=== PATIENT | male | born 1980 | race Asian ===

== ENCOUNTER 2021-09-18 11:09 | Inpatient (IN) ==
[2021-09-18] MEDS ORDERED: SODIUM CHLORIDE 0.9% 1000ML 1,000 ML IV ONE (11:26)
[2021-09-18] MEDS ORDERED: dexAMETHasone**PF** 10 MG/ML VIAL IV ONE (11:26)
[2021-09-18] MEDS ORDERED: ACETAMINOPHEN 325 MG TAB PO STA (11:26)
--- NOTE | 2021-09-18 11:30 | Emergency Department Note ---
Impression & Plan Pneumonia due to COVID-19 virus, Acute respiratory failure with hypoxemia ED Provider Note NAME: DIVYA CASTILLO AGE: 41 SEX: M : 1980 ARRIVES VIA: Walk-In INFORMANT: Patient ED PROVIDER(S): Olegario Beauchamp DO CHIEF COMPLAINT: covid, hypoxic HPI: Patient is a 41-year-old male who presents the ER for upper respiratory symptoms. This started this past Saturday. His cough congestion. Shortness of breath has been getting worse. Admits to fevers. Intermittent chest pain. Denies any belly pain, nausea, vomiting, or diarrhea. No dysuria, urgency, or frequency. No other exacerbating or remitting factors. ROS: See above HPI for pertinent positives & negatives. A total of 10 systems reviewed and were otherwise negative. PAST MEDICAL HISTORY:See Below PAST SURGICAL HISTORY:See Below FAMILY HISTORY:See Below SOCIAL HISTORY:See Below HOME MEDICATIONS:See Below ALLERGIES:See Below VITALS:See Below PHYSICAL EXAMINATION: GENERAL: Sitting up in bed, alert, well appearing, well nourished, no distress, non-toxic EYE EXAM: normal conjunctiva. OROPHARYNX: no exudate, no erythema, lips, buccal mucosa, and tongue normal and mucous membranes are moist NECK: supple, no nuchal rigidity, no adenopathy, non-tender LUNGS: Diminished bilaterally. Normal chest wall mechanics HEART: no murmurs, S1 normal and S2 normal ABDOMEN: abdomen soft, non-tender, normo-active bowel sounds, no masses, no rebound or guarding. UPPER EXTREMITIES: upper extremities are grossly normal. LOWER EXTREMITIES: No pitting edema. NEURO EXAM: Normal sensorium, cranial nerves II-XII grossly intact, normal speech, no gross weakness of arms, no gross weakness of legs. MEDICAL DECISION MAKING: Patient is a 41-year-old male unvaccinated who presents ER for upper respiratory symptoms previously positive for Covid. He is found to be hypoxic at 77%. He was placed on a nonrebreather and then transition to high flow nasal cannula. IV was established blood work is obtained. Labs show no significant leukocytosis or anemia. VBG with a pH of 7.47. CO2 at 36. BMP with a potassium of 3.3. LFTs were up. T bili slightly up at 1.5. Troponin was de tectable at 0.105. Lipase was negative. Chest x-ray with bilateral infiltrates. Patient was given IV fluids and Decadron. He was updated bedside discussed with hospitalist admitted for further work-up. Remained on high flow throughout the stay in the ER. Triage Nursing notes reviewed. Limited review of prior medical records performed Vital Signs: reviewed and remarkable for tachycardic, hypoxic and febrile Differential diagnosis: Differential diagnoses includes but is not limited to pneumonia, bronchitis, COPD/Asthma exacerbation, pneumothorax, pulmonary embolism, congestive heart failure, acute coronary syndrome ER treatment provided: See below Diagnostics interpreted by me: ECG:sinus rhythm rate 92 Normal axis No PVCs QTC 469 Cardiac Monitoring: An order was placed for continuous cardiac monitoring. The monitor shows a rate of 115 with sinus rhythm. Laboratory studies: As stated above and show below. Imaging studies: Chest x-ray with extensive bilateral infiltrates Ultrasound was unremarkable Consultation(s): Discussed with hospitalist for further evaluation Procedures: none Critical Care: I have personally spent 40 minutes of critical care time in the direct management of this patient. This includes bedside care, interpretation of diagnostic studies, and testing, discussion with consultants, patient, and family members, and other required patient management activities. This 40 m inutes is in excess of all separately billable procedures. Past Med/Surg History Social History Smoking Status: Never smoker Preferred Language: Kinyarwanda Feels Safe at Home: Yes Allergies Allergies Allergy/AdvReac Type Severity Reaction Status Date / Time No Known Allergies Allergy Unverified 09/12/21 11:37 Home Meds Previous Rx's Medication Instructions Recorded potassium chloride 20 mEq 20 meq PO DAILY #3 tab 09/12/21 tablet,extended release Results & Data (ED) Vital Signs Vital Signs - 24 hr 09/18/21 11:10 09/18/21 11:34 09/18/21 11:36 Temperature 38.3 C H Temperature Source Oral Pulse Rate 128 H Pulse Rate [Left] 92 H Pulse Rate from SpO2 Sensor Pulse Rhythm [Left] Regular Pulse Strength [Left] Normal Respiratory Rate 20 30 H 33 H Respiratory Effort / Characteristics Non-Labored Spontaneous Labored Respiratory Depth Normal Respiratory Pattern Regular Tachypnea Blood Pressure 103/67 Blood Pressure [Left Arm] 111/75 Blood Pressure Mean 79 Blood Pressure Mean [Left Arm] 87 Blood Pressure Position Sitting Blood Pressure Position [Left Arm] Sitting Pulse Oximetry 98 95 Oxygen Delivery Method Room Air Non-rebreather Oxygen Flow Rate 15 Fraction of Inspired Oxygen Sepsis Recent Fever Within 48 Hours Yes Sepsis New/Unexplained Change in Mental Status No Sepsis Action Taken by Nursing No Action Required 09/18/21 11:45 09/18/21 12:00 09/18/21 12:15 Temperature Temperature Source Pulse Rate 94 H 93 H 91 H Pulse Rate [Left] Pulse Rate from SpO2 Sensor 92 H 93 H 92 H Pulse Rhythm [Left] Pulse Strength [Left] Respiratory Rate 25 H 31 H 28 H Respiratory Effort / Characteristics Respiratory Depth Respiratory Pattern Blood Pressure 121/77 109/74 Blood Pressure [Left Arm] Blood Pressure Mean 91 85 Blood Pressure Mean [Left Arm] Blood Pressure Position Blood Pressure Position [Left Arm] Pulse Oximetry 93 97 94 Oxygen Delivery Method Non-rebreather Non-rebreather Oxygen Flow Rate 15 15 Fraction of Inspired Oxygen Sepsis Recent Fever Within 48 Hours Sepsis New/Unexplained Change in Mental Status Sepsis Action Taken by Nursing 09/18/21 12:23 09/18/21 12:30 09/18/21 13:00 Temperature 37.0 C Temperature Source Oral Pulse Rate 92 H 86 Pulse Rate [Left] 82 Pulse Rate from SpO2 Sensor 92 H 87 Pulse Rhythm [Left] Pulse Strength [Left] Respiratory Rate 26 H 22 22 Respiratory Effort / Characteristics Spontaneous Respiratory Depth Respiratory Pattern Blood Pressure 100/67 123/62 Blood Pressure [Left Arm] Blood Pressure Mean 78 82 Blood Pressure Mean [Left Arm] Blood Pressure Position Blood Pressure Position [Left Arm] Pulse Oximetry 94 94 94 Oxygen Delivery Method High Flow Nasal Cannula High Flow Nasal Cannula High Flow Nasal Cannula Oxygen Flow Rate 40 Fraction of Inspired Oxygen 60 80 Sepsis Recent Fever Within 48 Hours Sepsis New/Unexplained Change in Mental Status Sepsis Action Taken by Nursing 09/18/21 13:30 09/18/21 14:00 Temperature Temperature Source Pulse Rate 84 84 Pulse Rate [Left] Pulse Rate from SpO2 Sensor 84 83 Pulse Rhythm [Left] Pulse Strength [Left] Respiratory Rate 23 14 Respiratory Effort / Characteristics Respiratory Depth Respiratory Pattern Blood Pressure 129/64 126/64 Blood Pressure [Left Arm] Blood Pressure Mean 85 84 Blood Pressure Mean [Left Arm] Blood Pressure Position Blood Pressure Position [Left Arm] Pulse Oximetry 93 93 Oxygen Delivery Method High Flow Nasal Cannula High Flow Nasal Cannula Oxygen Flow Rate Fraction of Inspired Oxygen Sepsis Recent Fever Within 48 Hours Sepsis New/Unexplained Change in Mental Status Sepsis Action Taken by Nursing Laboratory Data Result diagrams: 09/18/21 11:30 09/18/21 11:30 Lab Results 09/18/21 09/18/21 09/18/21 Range/Units 11:30 11:30 11:30 WBC 8.47 (4.8-10.8) K/uL RBC 4.93 (4.7-6.1) M/uL Hgb 14.8 (14.0-18.0) g/dL Hct 42.9 (42-52) % MCV 87.0 (80-100) fL MCH 30.0 (25-34) pg MCHC 34.5 (32-36) g/dL RDW Std Deviation 40.8 (36.4-46.3) fL RDW Coeff of Patricia 12.7 (11.5-14.5) % Plt Count 144 (130-400) K/uL MPV 10.2 (7.4-10.4) fL Immature Gran % (Auto) 0.4 % Neut % (Auto) 82.5 % Lymph % (Auto) 11.3 % [place] % (Auto) 5.7 % Eos % (Auto) 0.0 % Baso % (Auto) 0.1 % Neut # (Auto) 6.99 H (1.4-6.5) K/uL Lymph # (Auto) 0.96 L (1.2-3.4) K/uL [place] # (Auto) 0.48 (0.11-0.59) K/uL Eos # (Auto) 0.00 (0-0.5) K/uL Baso # (Auto) 0.01 (0-0.2) K/uL Immature Gran # (Auto) 0.03 H (0.00-0.02) K/uL VBG pH (7.36-7.41) VBG pCO2 (38-50) mmHg VBG pO2 mmHg VBG HCO3 mmol/L VBG O2 Saturation % VBG Base Excess mEq/L Barometric Pressure mm/Hg Sodium 135 L (136-145) mmol/L Potassium 3.1 L (3.5-5.1) mmol/L Chloride 101 (98-107) mmol/L Carbon Dioxide 27 (21-32) mmol/L Anion Gap 7.0 (3-11) BUN 13 (7-18) mg/dl Creatinine 1.10 (0.6-1.4) mg/dl Est Cr Clr Drug Dosing 85.5 ml/min Est GFR ( Amer) 96.1 ml/min Est GFR (Non-Af Amer) 82.9 ml/min BUN/Creatinine Ratio 12.2 (10-20) Glucose 122 H (70-99) mg/dl Calcium 8.2 L (8.5-10.1) mg/dl Total Bilirubin 1.5 H (0.2-1) mg/dl AST 209 H (15-37) U/L ALT 173 H (12-78) Alkaline Phosphatase 138 H (45-117) U/L Troponin I 0.105 H* (0-0.045) ng/ml C-Reactive Protein 12.70 H (0-0.29) mg/dl NT-Pro-B Natriuret Pep (0-450) pg/ml Total Protein 6.9 (6.4-8.2) gm/dl Albumin 2.8 L (3.4-5.0) gm/dl Globulin 4.1 H (2.5-4.0) gm/dl Albumin/Globulin Ratio 0.7 L (0.9-2) Lipase 343 (73-393) U/L 09/18/21 09/18/21 Range/Units 11:30 11:41 WBC (4.8-10.8) K/uL RBC (4.7-6.1) M/uL Hgb (14.0-18.0) g/dL Hct (42-52) % MCV (80-100) fL MCH (25-34) pg MCHC (32-36) g/dL RDW Std Deviation (36.4-46.3) fL RDW Coeff of Patricia (11.5-14.5) % Plt Count (130-400) K/uL MPV (7.4-10.4) fL Immature Gran % (Auto) % Neut % (Auto) % Lymph % (Auto) % [place] % (Auto) % Eos % (Auto) % Baso % (Auto) % Neut # (Auto) (1.4-6.5) K/uL Lymph # (Auto) (1.2-3.4) K/uL [place] # (Auto) (0.11-0.59) K/uL Eos # (Auto) (0-0.5) K/uL Baso # (Auto) (0-0.2) K/uL Immature Gran # (Auto) (0.00-0.02) K/uL VBG pH 7.47 H (7.36-7.41) VBG pCO2 36 L (38-50) mmHg VBG pO2 28 mmHg VBG HCO3 25 mmol/L VBG O2 Saturation < 60.0 % VBG Base Excess 1.9 mEq/L Barometric Pressure 738.2 mm/Hg Sodium (136-145) mmol/L Potassium (3.5-5.1) mmol/L Chloride (98-107) mmol/L Carbon Dioxide (21-32) mmol/L Anion Gap (3-11) BUN (7-18) mg/dl Creatinine (0.6-1.4) mg/dl Est Cr Clr Drug Dosing ml/min Est GFR ( Amer) ml/min Est GFR (Non-Af Amer) ml/min BUN/Creatinine Ratio (10-20) Glucose (70-99) mg/dl Calcium (8.5-10.1) mg/dl Total Bilirubin (0.2-1) mg/dl AST (15-37) U/L ALT (12-78) Alkaline Phosphatase (45-117) U/L Troponin I (0-0.045) ng/ml C-Reactive Protein (0-0.29) mg/dl NT-Pro-B Natriuret Pep 349 (0-450) pg/ml Total Protein (6.4-8.2) gm/dl Albumin (3.4-5.0) gm/dl Globulin (2.5-4.0) gm/dl Albumin/Globulin Ratio (0.9-2) Lipase (73-393) U/L Administered Medications Discontinued Medications Acetaminophen (Acetaminophen 325 Mg Tab) 650 mg PO NOW STA Stop: 09/18/21 11:27 Last Admin: 09/18/21 11:39 Dose: 650 mg Documented by: [id number] Aspirin (Aspirin Chew 324 Mg) 324 mg PO NOW STA Stop: 09/18/21 12:29 Last Admin: 09/18/21 12:50 Dose: 324 mg Documented by: [id number] Dexamethasone Sodium Phosphate (DexamethasonePf 10 Mg/Ml Vial) 8 mg IV NOW ONE Stop: 09/18/21 11:27 Last Admin: 09/18/21 11:38 Dose: 8 mg Documented by: [id number] Sodium Chloride (Nss 1000ml) 1,000 mls @ 999 mls/hr IV .Q1H1M ONE Stop: 09/18/21 12:26 Last Infusion: 09/18/21 12:40 Dose: 0 mls/hr Documented by: [id number] Admin: 09/18/21 11:39 Dose: 999 mls/hr Documented by: [id number] Potassium Chloride (K Edy / Wtr) 10 meq in 100 mls @ 100 mls/hr IV Q1H DAVE Stop: 09/18/21 15:14 Last Infusion: 09/18/21 15:54 Dose: 0 mls/hr Documented by: [id number] Admin: 09/18/21 14:45 Dose: 100 mls/hr Documented by: [id number] Infusion: 09/18/21 14:45 Dose: 100 mls/hr Documented by: [id number] Admin: 09/18/21 13:45 Dose: 100 mls/hr Documented by: [id number] Remdesivir 200 mg/ Sodium (Chloride) 250 mls @ 125 mls/hr IV ONE STA; Protocol Stop: 09/18/21 16:37 Last Admin: 09/18/21 16:00 Dose: 125 mls/hr Documented by: [id number] Potassium Chloride (Potassium Chloride Crtab 20 Meq Tabcr) 40 meq PO NOW STA Stop: 09/18/21 12:29 Last Admin: 09/18/21 12:55 Dose: Not Given Documented by: [id number] Potassium Chloride (Potassium Chloride 10 Meq / 100ml Wtr) Confirm Administered Dose 10 meq IV .STK-MED ONE Stop: 09/18/21 12:40 Last Admin: 09/18/21 13:45 Dose: Not Given Documented by: [id number] Imaging Data Radiologist's Impression: Gallbladder Ultrasound 09/18/21 00:00 ABDOMINAL ULTRASOUND, RIGHT UPPER QUADRANT HISTORY: Generalized abdominal pain. COMPARISON: None. FINDINGS: Pancreas: The pancreas demonstrates a normal echotexture. Liver: Unremarkable. Gallbladder: The gallbladder is contracted. This likely accounts for the borderline gallbladder wall thickening at 3 mm. No gallstones. Negative sonographic Vincent sign. CBD: 4 mm. Right kidney: No hydronephrosis. IMPRESSION: Contracted gallbladder. No gallstones. ACT 112: Negative or not required by law. Electronically signed by: Jeffery Velasco M.D. 09/18/2021 3:10 PM Chest X-Ray 09/18/21 11:26 XR chest 1V portable HISTORY: Shortness of breath. Atypical Chest Pain COMPARISON: None. FINDINGS: Extensive multifocal patchy bilateral airspace opacities. The heart is mildly enlarged. No pleural effusions. No pneumothorax. IMPRESSION: 1 Extensive multifocal bilateral airspace opacities. This likely represents a viral pneumonia. 2. Mild cardiomegaly. ACT 112: Negative or not required by law. Electronically signed by: Jeffery Velasco M.D. 09/18/2021 12:18 PM Discharge Plan Visit Data Chief Complaint: Abnormal Labs/Diagnostic Testing Stated Complaint: LOW O2 LEVEL ED Provider: Olegario Beauchamp Discharge Problem: Pneumonia due to COVID-19 virus, Acute respiratory failure with hypoxemia Patient Disposition: Admitted As Inpatient Discharge Instructions Interventions: ED Discharge Assessment Last Done: 09/18/21 17:04
[2021-09-18 11:58] LABS: Basophils # (auto) 0.01 K/uL (0-0.2); Basophils % (auto) 0.1 %; Hematocrit (blood only) 42.9 % (42-52); Hemoglobin 14.8 g/dL (14.0-18.0); Immature Granulocytes # (auto) 0.03 K/uL (0.00-0.02); Immature Granulocytes % (auto) 0.4 %; Lymphocytes # (auto) 0.96 K/uL (1.2-3.4); Lymphocytes % (auto) 11.3 %; Mean Corpuscular Hgb Conc 34.5 g/dL (32-36); Mean Platelet Volume 10.2 fL (7.4-10.4); Monocytes # (auto) 0.48 K/uL (0.11-0.59); Monocytes % (auto) 5.7 %; Neutrophils # (auto) 6.99 K/uL (1.4-6.5); Neutrophils % (auto) 82.5 %; Platelet Count 144 K/uL (130-400); RDW Coefficient of Variation 12.7 % (11.5-14.5); RDW Standard Deviation 40.8 fL (36.4-46.3); Red Blood Count 4.93 M/uL (4.7-6.1); White Blood Count 8.47 K/uL (4.8-10.8)
[2021-09-18 12:03] LABS: Base Excess VBG 1.9 mEq/L; HCO3 VBG 25 mmol/L; PCO2 VBG 36 mmHg (38-50); PO2 VBG 28 mmHg; pH VBG 7.47 (7.36-7.41)
[2021-09-18 12:08] LABS: Oxygen Saturation VBG < 60.0 %
[2021-09-18 12:15] LABS: Albumin Level 2.8 gm/dl (3.4-5.0); BUN Creatinine Ratio 12.2 (10-20); Calcium 8.2 mg/dl (8.5-10.1); Creatinine Clr Calc Pharmacy 85.5 ml/min; Est GFR (African American) 96.1 ml/min; Est GFR (Non-African American) 82.9 ml/min; Potassium 3.1 mmol/L (3.5-5.1)
--- NOTE | 2021-09-18 12:20 | XRay Report ---
XR chest 1V portable HISTORY: Shortness of breath. Atypical Chest Pain COMPARISON: None. FINDINGS: Extensive multifocal patchy bilateral airspace opacities. The heart is mildly enlarged. No pleural effusions. No pneumothorax. IMPRESSION: 1 Extensive multifocal bilateral airspace opacities. This likely represents a viral pneumonia. 2. Mild cardiomegaly. ACT 112: Negative or not required by law. Electronically signed by: Jeffery Velasco M.D. 09/18/2021 12:18 PM
[2021-09-18 12:26] LABS: Albumin Globulin Ratio 0.7 (0.9-2); Bilirubin,Total 1.5 mg/dl (0.2-1); Globulin 4.1 gm/dl (2.5-4.0); Total Protein 6.9 gm/dl (6.4-8.2); Troponin I 0.105 ng/ml (0-0.045)
[2021-09-18] MEDS ORDERED: ASPIRIN CHEW 324 MG PO STA (12:28)
[2021-09-18] MEDS ORDERED: POTASSIUM CHLORIDE CRTAB 20 MEQ TABCR PO STA (12:28)
[2021-09-18] MEDS ORDERED: POTASSIUM CHLORIDE 10 MEQ / 100ML WTR IV ONE (12:39)
[2021-09-18] MEDS: POTASSIUM CHLORIDE / WTR 10 MEQ/100 ML PLCT IV SCH ×2 (13:45→14:45)
[2021-09-18] MEDS ORDERED: ALBUTEROL 0.083% NEBU SOLN 3 ML VIAL NEB PRN (14:09)
--- NOTE | 2021-09-18 14:21 | History & Physical Report ---
Date of Service September 18, 2021 Assessment & Plan (1) Pneumonia due to COVID-19 virus: Plan: Place on remdesevir and decadron. HOLD BARICITINIB HE DOES NOT MEET CRITERIA DUE TO ABNORMAL LFTs CRP above 12 on high flow. 40 liters 60% will closely monitor. may need to be intubated if he worsens (2) Acute respiratory failure with hypoxemia: Plan: as stated above. (3) Abnormal liver function test: Plan: will montior and obtain imaging. may be secondary to COVID. History of Present Illness Chief Complaint: worsening SOB Primary Care Provider: NO PCP This is a pleasant 41 yo male who comes in with a 7 day history of upper respiratory illness symptoms. Sore throat cough, fever chills, SOB. This has been ongoing and gradually worsening to the point today that patient could not breath well at home. ROS below Allergies Allergy/AdvReac Type Severity Reaction Status Date / Time No Known Allergies Allergy Unverified 09/12/21 11:37 Home Medications Medication Instructions Recorded Confirmed Type potassium chloride 20 mEq 20 meq PO DAILY #3 tab 09/12/21 09/18/21 Rx tablet,extended release Past Med/Surg History Social History Smoking Status: Never smoker Hx Alcohol Use: No Hx Substance Use: No Preferred Language: Arabic Communication Ability: Effective Print Production Associate Required: No Beliefs That Will Affect Care: None Current Living Situation: Alone Feels Safe at Home: Yes Safety Concerns: Feels Safe At This Time Assistive Devices: Oxygen - Continuous Assistive Devices Comment: currently on high flow oxygen Review of Systems Constitutional: + fever, + chills, + body aches and + fatigue Eyes: no blind spots Ear, Nose, Mouth, Throat: no ear pain Respiratory: + cough, + chest congestion and + dyspnea Cardiovascular: no chest pain Gastrointestinal: no abdominal pain Genitourinary: no dysuria Musculoskeletal: no back pain Integumentary: no acne Neurologic: no gait abnormality Psychiatric: no behavioral changes Endocrine: + fatigue Allergy / Immunological: no GI upset with certain foods Physical Exam Physical Exam: Patient is proning as he is unable to tolerate suppine postiion due to hypoxia. Appears comfortable on high flow. Constitutional: + ill appearing Eyes: PERRL, conjunctivae normal, anicteric sclerae ENMT: external ear and nose normal, oropharynx normal Neck: trachea midline, no thyromegaly Respiratory: Auscultation: + crackles Cardiovascular: RRR, no murmur, no edema Gastrointestinal (Abdomen): normal bowel sounds, soft, nontender, no hepatosplenomegaly Musculoskeletal: no cyanosis or clubbing, extremities motor strength 5/5 Skin: no rashes, warm and dry Neurologic: PERRL, EOMI, accommodation nl, no face palsy, no dysarthria Psychiatric: A+Ox3, euthymic affect Lymphatic: no cervical or axillary lymphadenopathy Results & Data Results & Data ([facility]) Vital Signs (Past 12 Hours) Vital Signs Temp Pulse Pulse Resp BP BP Pulse Ox 09/18/21 13:00 86 22 123/62 94 09/18/21 12:30 92 H 22 100/67 94 09/18/21 12:23 82 26 H 94 09/18/21 12:15 91 H 28 H 94 09/18/21 12:00 93 H 31 H 109/74 97 09/18/21 11:45 94 H 25 H 121/77 93 09/18/21 11:36 92 H 33 H 111/75 95 09/18/21 11:34 30 H 09/18/21 11:10 38.3 C H 128 H 20 103/67 98 PG Care Time/CCT Total # of Minutes Spent Total Time Spent with Patient: Total time spent is greater than 50% in coordination of care (as documented) at patient's floor/unit and/or counseling patient: Coding Level of Care Code 12344 Initial Inpt Care Lvl 3 Diagnoses Pneumonia due to COVID-19 virus U07.1; J12.82 Acute respiratory failure with hypoxemia J96.01 Abnormal liver function test R79.89
[2021-09-18] MEDS ORDERED: REMDESIVIR 200 MG in SODIUM CHLORIDE 0.9% 210 ML IV STA (14:38)
--- NOTE | 2021-09-18 15:12 | Ultrasound Report ---
ABDOMINAL ULTRASOUND, RIGHT UPPER QUADRANT HISTORY: Generalized abdominal pain. COMPARISON: None. FINDINGS: Pancreas: The pancreas demonstrates a normal echotexture. Liver: Unremarkable. Gallbladder: The gallbladder is contracted. This likely accounts for the borderline gallbladder wall thickening at 3 mm. No gallstones. Negative sonographic Vincent sign. CBD: 4 mm. Right kidney: No hydronephrosis. IMPRESSION: Contracted gallbladder. No gallstones. ACT 112: Negative or not required by law. Electronically signed by: Jeffery Velasco M.D. 09/18/2021 3:10 PM
[2021-09-18] MEDS ORDERED: ACETAMINOPHEN 325 MG TAB PO PRN (17:05)
[2021-09-18] MEDS ORDERED: ACETAMINOPHEN 1000 MG/100 ML IV IV ONE (17:08)
[2021-09-18] MEDS: SODIUM CHLORIDE 0.9% 10ML FLUSH IV SCH (18:31)
[2021-09-19 06:02] LABS: Basophils # (auto) 0.01 K/uL (0-0.2); Basophils % (auto) 0.1 %; Hematocrit (blood only) 43.6 % (42-52); Immature Granulocytes # (auto) 0.05 K/uL (0.00-0.02); Immature Granulocytes % (auto) 0.6 %; Lymphocytes # (auto) 0.63 K/uL (1.2-3.4); Lymphocytes % (auto) 7.3 %; Mean Corpuscular Hemoglobin 29.8 pg (25-34); Mean Corpuscular Hgb Conc 34.4 g/dL (32-36); Mean Corpuscular Volume 86.7 fL (80-100); Mean Platelet Volume 10.7 fL (7.4-10.4); Monocytes # (auto) 0.37 K/uL (0.11-0.59); Monocytes % (auto) 4.3 %; Neutrophils # (auto) 7.58 K/uL (1.4-6.5); Neutrophils % (auto) 87.7 %; Platelet Count 142 K/uL (130-400); RDW Coefficient of Variation 12.9 % (11.5-14.5); RDW Standard Deviation 41.3 fL (36.4-46.3); Red Blood Count 5.03 M/uL (4.7-6.1); White Blood Count 8.64 K/uL (4.8-10.8)
[2021-09-19 06:38] LABS: Albumin Level 2.4 gm/dl (3.4-5.0); BUN Creatinine Ratio 18.7 (10-20); Bilirubin Direct 0.5 mg/dl (0-0.2); Bilirubin,Total 1.1 mg/dl (0.2-1); Calcium 8.4 mg/dl (8.5-10.1); Creatinine Clr Calc Pharmacy 105.7 ml/min; Est GFR (African American) 123.1 ml/min; Est GFR (Non-African American) 106.2 ml/min; Potassium 3.6 mmol/L (3.5-5.1); Total Protein 6.3 gm/dl (6.4-8.2)
[2021-09-19 08:44] LABS: C Reactive Protein 11.6 mg/dl (0-0.29); Magnesium 2.4 mg/dl (1.8-2.4); Troponin I 0.018 ng/ml (0-0.045)
[2021-09-19] MEDS: ENOXAPARIN INJ 40 MG/0.4 ML SYR SQ SCH ×2 (10:59→22:28)
[2021-09-19] MEDS: dexAMETHasone 6 MG in SYRINGE 0 ML IV SCH (10:59)
[2021-09-19] MEDS: POTASSIUM CHLORIDE CRTAB 20 MEQ TABCR PO SCH (10:59)
[2021-09-19] MEDS ORDERED: SODIUM CHLORIDE 0.9% 1000ML 1,000 ML IV SCH (13:00)
[2021-09-19] MEDS ORDERED: BARICITINIB COMMUNICATION ONE ×2 (13:03)
--- NOTE | 2021-09-19 13:05 | Hospitalist Progress Note ---
Date of Service September 19, 2021 Assessment & Plan (1) Pneumonia due to COVID-19 virus: Plan: Severe b/l pneumonia. Has required HFNC since the time of ER presentation. Day #2 - Dexamethasone 6mg IV daily. Day #2 - Remdesivir. LFTs are improved today. He does meet criteria for Baricitinib at this time. CRP is >7.5. Gave EUA handout to patient. Baricitinib 4mg daily initiated. Patient is on lovenox 40mg BID for DVT proph. Add albuterol 2 puffs qid due to focal wheezes/rhonchi. Cont HFNC, maintain o2 sats >92%. At risk of disease progression leading to intubation/mech ventilation. (2) Acute respiratory failure with hypoxemia: Plan: 2nd to #1 above. Severe disease. No evidence of complicating bacterial superinfection or acute CHF. HFNC. Steroids, Remdesivir, etc. Proning encouraged; handout given. Incentive iliana/flutter valve. Recheck crp and procal in am. (3) Abnormal liver function test: Plan: Likely 2nd to COVID-19 infection. LFTs all improved today. Repeat LFTs in am. RUQ u/s with normal appearing liver & gall bladder. If LFTs remain high consider infectious hepatitis testing but again I believe LFTs are COVID-related. LFTs were normal earlier this month. (4) Hypotension: Plan: 2nd to dehydration. Give 1 L of isotonic fluid today. Follow BPs. Repeat labs am. (5) DVT prophylaxis: Plan: lovenox 40mg BID (6) Hypokalemia: Plan: 2nd to recent, severe diarrhea. diarrhea due to COVID. continue K supplementation for a few more days. BMP in am. mag level noted to be normal. Plan: updated Linda's father (Mr. Dawson - [phone]) his father had limited Mongolian but did voice understanding that Linda is quiet sick from his COVID his father was able to provide Linda's 's phone # - [phone] his apparently speaks no Mongolian will attempt to contact pt's tomorrow via a Occitan blockers skiver Admission and Anticipated Discharge Date Admission Date: September 18, 2021 Subjective patient lying comfortably in bed during the visit remains on high-flow NC he reports that he was unvaccinated against COVID-19 he is with 3 children he lives in [place] but is originally from [place] he reports ongoing poor appetite, weakness, fatigue minimal cough severe [place] with minimal activity he has had diarrhea but no vomiting we had a discussion about use of Baricitinib I gave him the EUA Baricitinib handout to him I also printed a COVID proning handout which staff will give to him he denies any PMH and denies any h/o hepatitis Review of Systems Review of Systems: gen - no fever or chills CV - no cp, no orthopnea GI - no abd pain pulm - no dyspnea at rest Physical Exam Physical Exam: gen - looks sick, dehydrated, mild tachypnea, mild language barrier but asks appropriate questions and follows commands mouth - MM dry neck - no JVD heart - RRR, s1 s2, no murmur lungs - diffuse rales b/l, focal rhonchi/wheeze right base, mild tachypnea abd - soft NT ND BS+; no HSM ext - no edema, pulses 2+ b/l skin - no rash Results & Data Results & Data ([facility]) Vital Signs (Past 12 Hours) Vital Signs Temp Pulse Resp BP BP Pulse Ox 09/19/21 11:02 70 28 H 90 09/19/21 08:12 36.8 C 76 26 H 94/58 L 93 09/19/21 07:39 81 26 H 94 09/19/21 04:16 96 09/19/21 03:43 36.4 C L 65 25 H 94/58 L 94 09/19/21 02:38 62 24 92 Laboratory Results Laboratory Results - last 24 hr 09/18/21 09/18/21 09/19/21 11:30 11:30 05:35 WBC RBC Hgb Hct MCV MCH MCHC RDW Std Deviation RDW Coeff of Patricia Plt Count MPV Immature Gran % (Auto) Neut % (Auto) Lymph % (Auto) [place] % (Auto) Eos % (Auto) Baso % (Auto) Neut # (Auto) Lymph # (Auto) [place] # (Auto) Eos # (Auto) Baso # (Auto) Immature Gran # (Auto) Sodium 141 Potassium 3.6 D Chloride 110 H Carbon Dioxide 26 Anion Gap 5.0 BUN 17 Creatinine 0.89 Est Cr Clr Drug Dosing 105.7 Est GFR ( Amer) 123.1 Est GFR (Non-Af Amer) 106.2 BUN/Creatinine Ratio 18.7 Glucose 145 H Calcium 8.4 L Magnesium Total Bilirubin 1.1 H Direct Bilirubin 0.5 H AST 108 H ALT 131 H Alkaline Phosphatase 124 H Troponin I C-Reactive Protein 12.70 H NT-Pro-B Natriuret Pep 349 416 Total Protein 6.3 L Albumin 2.4 L 09/19/21 09/19/21 05:35 07:51 WBC 8.64 RBC 5.03 Hgb 15.0 Hct 43.6 MCV 86.7 MCH 29.8 MCHC 34.4 RDW Std Deviation 41.3 RDW Coeff of Patricia 12.9 Plt Count 142 MPV 10.7 H Immature Gran % (Auto) 0.6 Neut % (Auto) 87.7 Lymph % (Auto) 7.3 [place] % (Auto) 4.3 Eos % (Auto) 0.0 Baso % (Auto) 0.1 Neut # (Auto) 7.58 H Lymph # (Auto) 0.63 L [place] # (Auto) 0.37 Eos # (Auto) 0.00 Baso # (Auto) 0.01 Immature Gran # (Auto) 0.05 H Sodium Potassium Chloride Carbon Dioxide Anion Gap BUN Creatinine Est Cr Clr Drug Dosing Est GFR ( Amer) Est GFR (Non-Af Amer) BUN/Creatinine Ratio Glucose Calcium Magnesium 2.4 Total Bilirubin Direct Bilirubin AST ALT Alkaline Phosphatase Troponin I 0.018 C-Reactive Protein 11.60 H NT-Pro-B Natriuret Pep Total Protein Albumin PG Care Time/CCT Total # of Minutes Spent Total Time Spent with Patient: Total time spent is greater than 50% in coordination of care (as documented) at patient's floor/unit and/or counseling patient: Coding Level of Care Code 23408 Subseq Hosp Care Lvl 3 Diagnoses Pneumonia due to COVID-19 virus U07.1; J12.82 Acute respiratory failure with hypoxemia J96.01 Abnormal liver function test R79.89 DVT prophylaxis Z29.9 Hypotension I95.9 Hypokalemia E87.6
[2021-09-19] MEDS: REMDESIVIR 100 MG in SODIUM CHLORIDE 0.9% 230 ML IV SCH (13:31)
[2021-09-19] MEDS: SODIUM CHLORIDE 0.9% 10ML FLUSH IV SCH (14:43)
[2021-09-19] MEDS: BARICITINIB 2 MG TAB PO SCH (15:12)
[2021-09-19] MEDS: ALBUTEROL HFA 8 GM INHALER INH SCH ×2 (15:34→18:12)
--- NOTE | 2021-09-19 16:09 | Electrocardiogram Report ---
Test Reason : Blood Pressure : / mmHG Vent. Rate : 092 BPM Atrial Rate : 092 BPM P-R Int : 126 ms QRS Dur : 098 ms QT Int : 380 ms P-R-T Axes : -25 -23 005 degrees QTc Int : 469 ms Normal sinus rhythm Incomplete right bundle branch block Borderline ECG When compared with ECG of 12-SEP-2021 09:45, No significant change was found Confirmed by Jeffery Ruiz ([id number]) on 09/19/2021 4:08:53 PM Referred By: Confirmed By:Jeffery Ruiz
[2021-09-20 05:22] LABS: Hematocrit (blood only) 40.8 % (42-52); Hemoglobin 14.6 g/dL (14.0-18.0); Mean Corpuscular Hemoglobin 31.2 pg (25-34); Mean Corpuscular Hgb Conc 35.8 g/dL (32-36); Mean Corpuscular Volume 87.2 fL (80-100); Mean Platelet Volume 9.9 fL (7.4-10.4); Platelet Count 182 K/uL (130-400); RDW Coefficient of Variation 13.1 % (11.5-14.5); RDW Standard Deviation 41.9 fL (36.4-46.3); Red Blood Count 4.68 M/uL (4.7-6.1); White Blood Count 11.06 K/uL (4.8-10.8)
[2021-09-20 05:54] LABS: Albumin Level 2.3 gm/dl (3.4-5.0); BUN Creatinine Ratio 26.6 (10-20); Calcium 7.8 mg/dl (8.5-10.1); Creatinine Clr Calc Pharmacy 125.4 ml/min; Est GFR (African American) 132.1 ml/min; Est GFR (Non-African American) 113.9 ml/min; Potassium 3.5 mmol/L (3.5-5.1)
[2021-09-20 05:57] LABS: Albumin Globulin Ratio 0.7 (0.9-2); Bilirubin,Total 0.7 mg/dl (0.2-1); C Reactive Protein 7.69 mg/dl (0-0.29); Globulin 3.5 gm/dl (2.5-4.0); Total Protein 5.8 gm/dl (6.4-8.2)
[2021-09-20] MEDS: ALBUTEROL HFA 8 GM INHALER INH SCH ×4 (07:35→20:02)
[2021-09-20] MEDS: BARICITINIB 2 MG TAB PO SCH (09:22)
[2021-09-20] MEDS: dexAMETHasone 6 MG in SYRINGE 0 ML IV SCH (09:23)
[2021-09-20] MEDS: POTASSIUM CHLORIDE CRTAB 20 MEQ TABCR PO SCH (09:23)
[2021-09-20] MEDS: ENOXAPARIN INJ 40 MG/0.4 ML SYR SQ SCH ×2 (09:23→21:29)
[2021-09-20] MEDS: REMDESIVIR 100 MG in SODIUM CHLORIDE 0.9% 230 ML IV SCH (12:29)
[2021-09-20] MEDS: SODIUM CHLORIDE 0.9% 10ML FLUSH IV SCH (13:43)
--- NOTE | 2021-09-20 19:33 | Hospitalist Progress Note ---
Date of Service September 20, 2021 Assessment & Plan (1) Pneumonia due to COVID-19 virus: Plan: Severe b/l pneumonia. Has required HFNC since the time of ER presentation. Modest improvement today. Day #3 - Dexamethasone 6mg IV daily. Day #3 - Remdesivir. Day #2 - Baricitinib. LFTs are improved today. CRP improved. Lovenox 40mg BID for DVT proph. Cont albuterol 2 puffs qid. Cont HFNC, maintain o2 sats >92%. Status is tenuous and is still at risk of disease progression. (2) Acute respiratory failure with hypoxemia: Plan: 2nd to #1 above. Severe disease. No evidence of complicating bacterial superinfection or acute CHF. HFNC. Steroids, Remdesivir, etc. Cont to prone. Incentive iliana/flutter valve. Procal low and overall picture does not suggest bacterial superinfection. (3) Abnormal liver function test: Plan: Likely 2nd to COVID-19 infection. LFTs again all improved today. Repeat LFTs in am. RUQ u/s with normal appearing liver & gall bladder. LFTs were normal earlier this month. (4) Hypotension: Plan: 2nd to dehydration. Improved. Creatinine stable. (5) DVT prophylaxis: Plan: lovenox 40mg BID (6) Hypokalemia: Plan: 2nd to diarrhea - resolved Plan: updated Linda's father (Mr. Dawson - [phone]) on 09/19/21 his father was able to provide Linda's 's phone # - [phone] his apparently speaks no Argentine tried to call pt's today using a telephone-based [place] [employer] service - 's phone did not answer, went straight to voicemail but unable to leave any message will attempt again tomorrow Admission and Anticipated Discharge Date Admission Date: September 18, 2021 Subjective mild improvement in settings on his HFNC support during my visit he was proning he stated he "felt better" still tachypneic but comfortable eating has improved mild cough denies pain any location attempted to call pt's via telephone plastic finisher services - the phone call went straight to voicemail, unable to leave message Review of Systems Review of Systems: gen - fatigue, weak CV - no cp, no orthopnea pulm - cough, dyspnea GI - no N/V Physical Exam Physical Exam: gen - hydration improved today; looks a little better overall; mild comfortable tachypnea mouth - MMM neck - no JVD heart - RRR, s1 s2, no murmur lungs - less rales b/l, no rhonchi/wheeze today; miild tachypnea abd - soft NT ND BS+ ext - no edema, pulses 2+ b/l skin - no rash Results & Data Results & Data ([facility]) Vital Signs (Past 12 Hours) Vital Signs Temp Pulse Resp BP BP Pulse Ox 09/20/21 19:16 37.0 C 74 27 H 108/64 92 09/20/21 15:40 84 28 H 95 09/20/21 15:16 79 20 103/66 93 09/20/21 11:02 80 34 H 92 09/20/21 10:34 36.3 C L 81 32 H 123/76 89 L 09/20/21 08:00 36.9 C 63 20 110/52 L 91 09/20/21 07:36 67 24 94 Laboratory Results Laboratory Results - last 24 hr 09/20/21 09/20/21 09/20/21 05:07 05:07 05:07 WBC 11.06 H RBC 4.68 L Hgb 14.6 Hct 40.8 L MCV 87.2 MCH 31.2 MCHC 35.8 RDW Std Deviation 41.9 RDW Coeff of Patricia 13.1 Plt Count 182 MPV 9.9 Sodium 142 Potassium 3.5 Chloride 111 H Carbon Dioxide 25 Anion Gap 6.0 BUN 20 H Creatinine 0.75 Est Cr Clr Drug Dosing 125.4 Est GFR ( Amer) 132.1 Est GFR (Non-Af Amer) 113.9 BUN/Creatinine Ratio 26.6 H Glucose 154 H Calcium 7.8 L Total Bilirubin 0.7 AST 57 H ALT 97 H Alkaline Phosphatase 113 Total Creatine Kinase 344 H C-Reactive Protein 7.69 H Total Protein 5.8 L Albumin 2.3 L Globulin 3.5 Albumin/Globulin Ratio 0.7 L Procalcitonin 0.19 PG Care Time/CCT Total # of Minutes Spent Total Time Spent with Patient: Total time spent is greater than 50% in coordination of care (as documented) at patient's floor/unit and/or counseling patient: Coding Level of Care Code 99596 Subseq Hosp Care Lvl 2 Diagnoses Pneumonia due to COVID-19 virus U07.1; J12.82 Acute respiratory failure with hypoxemia J96.01 Abnormal liver function test R79.89 Hypotension I95.9 DVT prophylaxis Z29.9 Hypokalemia E87.6
[2021-09-21 06:37] LABS: Hematocrit (blood only) 42.6 % (42-52); Hemoglobin 14.4 g/dL (14.0-18.0); Mean Corpuscular Hemoglobin 29.8 pg (25-34); Mean Corpuscular Hgb Conc 33.8 g/dL (32-36); Mean Corpuscular Volume 88.2 fL (80-100); Mean Platelet Volume 9.9 fL (7.4-10.4); Platelet Count 205 K/uL (130-400); RDW Coefficient of Variation 12.9 % (11.5-14.5); RDW Standard Deviation 41.7 fL (36.4-46.3); Red Blood Count 4.83 M/uL (4.7-6.1); White Blood Count 14.81 K/uL (4.8-10.8)
[2021-09-21 07:08] LABS: BUN Creatinine Ratio 22.4 (10-20); C Reactive Protein 4.42 mg/dl (0-0.29); Calcium 8.1 mg/dl (8.5-10.1); Creatinine Clr Calc Pharmacy 110.6 ml/min; Est GFR (African American) 125.4 ml/min; Est GFR (Non-African American) 108.2 ml/min; Potassium 3.8 mmol/L (3.5-5.1)
[2021-09-21] MEDS: ALBUTEROL HFA 8 GM INHALER INH SCH ×4 (07:31→19:42)
[2021-09-21] MEDS: ENOXAPARIN INJ 40 MG/0.4 ML SYR SQ SCH ×2 (09:13→20:34)
[2021-09-21] MEDS: dexAMETHasone 6 MG in SYRINGE 0 ML IV SCH (09:13)
[2021-09-21] MEDS: BARICITINIB 2 MG TAB PO SCH (09:13)
[2021-09-21] MEDS: POTASSIUM CHLORIDE CRTAB 20 MEQ TABCR PO SCH (09:14)
[2021-09-21] MEDS: REMDESIVIR 100 MG in SODIUM CHLORIDE 0.9% 230 ML IV SCH (12:02)
[2021-09-21] MEDS: SODIUM CHLORIDE 0.9% 10ML FLUSH IV SCH (13:28)
--- NOTE | 2021-09-21 16:26 | Hospitalist Progress Note ---
Date of Service September 21, 2021 Assessment & Plan (1) Pneumonia due to COVID-19 virus: Plan: Severe b/l pneumonia. Has required HFNC since the time of ER presentation. No major changes overnight. Day #4 - Dexamethasone 6mg IV daily. Day #4 - Remdesivir. Day #3 - Baricitinib. CRP improved. Lovenox 40mg BID for DVT proph. Cont albuterol 2 puffs qid. Cont HFNC, maintain o2 sats >92%. Cont to prone. (2) Acute respiratory failure with hypoxemia: Plan: 2nd to #1 above. Severe disease. No evidence of complicating bacterial superinfection or acute CHF. Cont HFNC. Cont Steroids, Remdesivir, etc. Cont to prone. Incentive iliana/flutter valve. Procal low and overall picture does not suggest bacterial superinfection. (3) Abnormal liver function test: Plan: Likely 2nd to COVID-19 infection. LFTs slightly higher today but minimally. Repeat LFTs in am. RUQ u/s with normal appearing liver & gall bladder. LFTs were normal earlier this month. (4) Hypotension: Plan: 2nd to dehydration. Resolved. Creatinine stable. (5) DVT prophylaxis: Plan: lovenox 40mg BID (6) Hypokalemia: Plan: 2nd to diarrhea - resolved Plan: updated Linda's father (Mr. Dawson - [phone]) on 09/19/21 his father was able to provide Linda's 's phone # - [phone]; 's name is Ani Drake his speaks no Ecuadorean tried to call pt's on 09/21/21 via telephone-based [place] [employer] Specialist service - 's phone did not answer, went straight to voicemail but unable to leave any message total time today 35 min most of which was spent at bedside Admission and Anticipated Discharge Date Admission Date: September 18, 2021 Subjective patient remains on HFNC 30L and 60% FIO2 during the visit he was proning I used the long distance billing operator iPad today as his [place] tongue is Mandarin [place] via the long distance billing operator the patient stated he felt ok eating is better no diarrhea in 2 days no chest pain, no abd pain still cough, and has HERNÁNDEZ patient told the long distance billing operator he is worried about the cost of his stay as he doesn't have health insurance patient states he lives and works in [place] has 3 children and is denies any chronic medical problems he also c/o poor sleep Review of Systems Review of Systems: gen - no fevers, no chills CV - no chest pain, no orthopnea pulm - no hemoptysis GI - no vomiting, no abd pain Physical Exam Physical Exam: gen - proning, very mild tachypnea but no distress otherwise, alert mouth - MMM neck - no JVD heart - RRR, s1 s2, no murmur lungs - mild bibasilar rales, no rhonchi/wheeze today; mild tachypnea abd - soft NT ND BS+ ext - no edema, pulses 2+ b/l skin - no rash Results & Data Results & Data ([facility]) Vital Signs (Past 12 Hours) Vital Signs Temp Pulse Resp BP BP Pulse Ox 09/21/21 16:22 74 30 H 92 09/21/21 11:55 80 32 H 90 09/21/21 11:24 37.9 C H 80 19 107/71 95 09/21/21 07:45 36.7 C 78 20 98/55 L 90 09/21/21 07:00 80 26 H 91 Laboratory Results Laboratory Results - last 24 hr 09/21/21 09/21/21 06:09 06:09 WBC 14.81 H RBC 4.83 Hgb 14.4 Hct 42.6 MCV 88.2 MCH 29.8 MCHC 33.8 RDW Std Deviation 41.7 RDW Coeff of Patricia 12.9 Plt Count 205 MPV 9.9 Sodium 141 Potassium 3.8 Chloride 109 H Carbon Dioxide 28 Anion Gap 4.0 BUN 19 H Creatinine 0.85 Est Cr Clr Drug Dosing 110.6 Est GFR ( Amer) 125.4 Est GFR (Non-Af Amer) 108.2 BUN/Creatinine Ratio 22.4 H Glucose 118 H Calcium 8.1 L AST 72 H ALT 109 H C-Reactive Protein 4.42 H PG Care Time/CCT Total # of Minutes Spent Total Time Spent with Patient: Total time spent is greater than 50% in coordination of care (as documented) at patient's floor/unit and/or counseling patient: Coding Level of Care Code 57064 Subseq Hosp Care Lvl 2 Diagnoses Pneumonia due to COVID-19 virus U07.1; J12.82 Acute respiratory failure with hypoxemia J96.01 Abnormal liver function test R79.89 Hypotension I95.9 DVT prophylaxis Z29.9 Hypokalemia E87.6
[2021-09-21] MEDS ORDERED: MELATONIN 3 MG TAB PO PRN (17:09)
[2021-09-21] MEDS: MELATONIN 3 MG TAB PO SCH (20:35)
[2021-09-22 08:16] LABS: BUN Creatinine Ratio 29.2 (10-20); Calcium 8.3 mg/dl (8.5-10.1); Creatinine Clr Calc Pharmacy 132.5 ml/min; Est GFR (African American) 135.1 ml/min; Est GFR (Non-African American) 116.5 ml/min; Potassium 4.3 mmol/L (3.5-5.1)
[2021-09-22] MEDS: POTASSIUM CHLORIDE CRTAB 20 MEQ TABCR PO SCH (08:31)
[2021-09-22] MEDS: ENOXAPARIN INJ 40 MG/0.4 ML SYR SQ SCH ×2 (08:31→22:00)
[2021-09-22] MEDS: BARICITINIB 2 MG TAB PO SCH (08:31)
[2021-09-22] MEDS: dexAMETHasone 6 MG in SYRINGE 0 ML IV SCH (08:32)
[2021-09-22] MEDS: FAMOTIDINE 20 MG TAB PO SCH ×2 (08:33→22:00)
[2021-09-22] MEDS: ALBUTEROL HFA 8 GM INHALER INH SCH ×3 (08:37→19:55)
[2021-09-22] MEDS: REMDESIVIR 100 MG in SODIUM CHLORIDE 0.9% 230 ML IV SCH (11:50)
[2021-09-22] MEDS: SODIUM CHLORIDE 0.9% 10ML FLUSH IV SCH (13:15)
--- NOTE | 2021-09-22 13:44 | XRay Report ---
XR chest 1V portable CLINICAL HISTORY: covid pneumonia, worsening hypoxia TECHNIQUE: Single frontal radiograph of the chest was obtained. Comparison: Comparison is made to chest one view 09/18/2021 FINDINGS: No lines and tubes are seen. Cardiomegaly is noted. Bilateral lower lung predominant airspace opaciti es are seen. No evidence of pleural effusion or pneumothorax. IMPRESSION: Stable appearance of multifocal airspace opacities compatible with history of viral pneumonia. ACT 112: Negative or not required by law. Electronically signed by: Tae Dennis M.D. 09/22/2021 1:43 PM
--- NOTE | 2021-09-22 21:03 | Hospitalist Progress Note ---
Date of Service September 22, 2021 Assessment & Plan (1) Pneumonia due to COVID-19 virus: Plan: Severe b/l pneumonia. Has required HFNC since the time of ER presentation. Through the night he has had intermittent hypoxia; even during the visit today he was hypoxic in the 80s on 60% FiO2. Increased his FiO2 to 70%. Day #5 - Dexamethasone 6mg IV daily. Day #5 of 5 - Remdesivir. Day #4 - Baricitinib. CRP improved but will recheck in am. Lovenox 40mg BID for DVT proph. Cont albuterol 2 puffs qid. Cont HFNC, maintain o2 sats >92%. Cont to prone. Pulmonary toilet. CXR today unchanged. (2) Acute respiratory failure with hypoxemia: Plan: 2nd to #1 above. Severe disease. No evidence of complicating bacterial superinfection or acute CHF. Cont HFNC. Cont Steroids, Baricitinib, Remdesivir, etc. Cont to prone. Incentive iliana/flutter valve. Procal low and overall picture does not suggest bacterial superinfection. However, will repeat CRP and procal in am. (3) Abnormal liver function test: Plan: 2nd to COVID-19 infection. LFTs slightly higher than yesterday but acceptable enough to continue baricitinib. Repeat ast/alt in am. RUQ u/s with normal appearing liver & gall bladder. (4) Hypotension: Plan: 2nd to dehydration. Resolved. Creatinine stable. (5) DVT prophylaxis: Plan: lovenox 40mg BID (6) Hypokalemia: Plan: 2nd to diarrhea - resolved stop K supplement Plan: updated Linda's father (Mr. Dawson - [phone]) on 09/19/21 's phone # - [phone]; 's name is Ani Drake his speaks no German she was updated today, 09/22, via the English php engineer questions answered patient has no health insurance - social work states [place] Admission and Anticipated Discharge Date Admission Date: September 18, 2021 Subjective history was obtained via English php engineer patient reports sleeping poorly despite the melatonin appetite has improved no diarrhea coughing - no change dyspnea - no change continues to prone during the visit I had the patient call his on his cell phone I kept the English php engineer on live and 's questions were answered via t he php engineer tele stable overnight Review of Systems Review of Systems: gen - no fevers, no chills; weak, fatigue cv - no orthopnea, no chest pain Pulm - dry cough present; dyspnea present GI - no N/V/D/abd pain Physical Exam Physical Exam: gen - proning, very mild tachypnea like previous; alert & oriented mouth - MMM; no thrush neck - JVD not assessed - patient was proned and flat on the bed heart - RRR, s1 s2, no murmur lungs - mild bibasilar dry rales, no rhonchi/wheeze; airation minimally improved, decreased BS bases; mild tachypnea abd - soft NT ND BS+ ext - no edema, pulses 2+ b/l skin - no rash Results & Data Results & Data ([facility]) Vital Signs (Past 12 Hours) Vital Signs Temp Pulse Pulse Resp BP Pulse Ox 09/22/21 15:22 80 09/22/21 15:20 37.2 C 56 L 20 96/56 L 95 09/22/21 11:34 37.4 C 74 28 H 103/65 96 09/22/21 10:25 94 H 26 H 90 09/22/21 10:17 54 L Laboratory Results Laboratory Results - last 24 hr 09/22/21 06:59 Sodium 138 Potassium 4.3 Chloride 106 Carbon Dioxide 26 Anion Gap 6.0 BUN 21 H Creatinine 0.71 Est Cr Clr Drug Dosing 132.5 Est GFR ( Amer) 135.1 Est GFR (Non-Af Amer) 116.5 BUN/Creatinine Ratio 29.2 H Glucose 96 Calcium 8.3 L AST 77 H ALT 127 H Diagnostic Findings Chest X-Ray 09/22/21 09:41 XR chest 1V portable CLINICAL HISTORY: covid pneumonia, worsening hypoxia TECHNIQUE: Single frontal radiograph of the chest was obtained. Comparison: Comparison is made to chest one view 09/18/2021 FINDINGS: No lines and tubes are seen. Cardiomegaly is noted. Bilateral lower lung predominant airspace opacities are seen. No evidence of pleural effusion or pneumothorax. IMPRESSION: Stable appearance of multifocal airspace opacities compatible with history of viral pneumonia. ACT 112: Negative or not required by law. Electronically signed by: Tae Dennis M.D. 09/22/2021 1:43 PM PG Care Time/CCT Total # of Minutes Spent Total Time Spent with Patient: Total time spent is greater than 50% in coordination of care (as documented) at patient's floor/unit and/or counseling patient: Coding Level of Care Code 63940 Subseq Hosp Care Lvl 2 Diagnoses Pneumonia due to COVID-19 virus U07.1; J12.82 Acute respiratory failure with hypoxemia J96.01 Abnormal liver function test R79.89 Hypotension I95.9 DVT prophylaxis Z29.9 Hypokalemia E87.6
[2021-09-22] MEDS: MELATONIN 3 MG TAB PO SCH ×2 (21:28→22:00)
[2021-09-23 06:37] LABS: Hematocrit (blood only) 43.9 % (42-52); Hemoglobin 15.1 g/dL (14.0-18.0); Mean Corpuscular Hemoglobin 30.6 pg (25-34); Mean Corpuscular Hgb Conc 34.4 g/dL (32-36); Mean Platelet Volume 9.7 fL (7.4-10.4); Platelet Count 263 K/uL (130-400); RDW Coefficient of Variation 12.9 % (11.5-14.5); RDW Standard Deviation 41.1 fL (36.4-46.3); Red Blood Count 4.93 M/uL (4.7-6.1); White Blood Count 12.43 K/uL (4.8-10.8)
[2021-09-23 07:11] LABS: BUN Creatinine Ratio 32.4 (10-20); C Reactive Protein 5.6 mg/dl (0-0.29); Calcium 8.7 mg/dl (8.5-10.1); Creatinine Clr Calc Pharmacy 127.1 ml/min; Est GFR (African American) 132.8 ml/min; Est GFR (Non-African American) 114.6 ml/min; Potassium 4.8 mmol/L (3.5-5.1)
[2021-09-23] MEDS: ALBUTEROL HFA 8 GM INHALER INH SCH ×2 (07:51→11:13)
[2021-09-23] MEDS: BARICITINIB 2 MG TAB PO SCH (08:58)
[2021-09-23] MEDS: dexAMETHasone 6 MG in SYRINGE 0 ML IV SCH (08:59)
[2021-09-23] MEDS: ENOXAPARIN INJ 40 MG/0.4 ML SYR SQ SCH ×2 (08:59→21:29)
[2021-09-23] MEDS: FUROSEMIDE INJ 20 MG/2 ML VIAL IV SCH (08:59)
[2021-09-23] MEDS ORDERED: ALBUTEROL HFA 8 GM INHALER INH PRN (09:30)
[2021-09-23] MEDS: FAMOTIDINE 20 MG TAB PO SCH ×2 (09:47→21:30)
--- NOTE | 2021-09-23 10:45 | Hospitalist Progress Note ---
Date of Service September 23, 2021 Assessment & Plan (1) Pneumonia due to COVID-19 virus: Plan: Severe b/l pneumonia. Has required HFNC since the time of ER presentation. currently he is 30L 60% Day #6 - Dexamethasone 6mg IV daily. completed 5 days of Remdesivir. Day #5 - Baricitinib. CRP improved, it is 5 Lovenox 40mg BID for DVT proph. Cont albuterol 2 puffs qid. Cont HFNC, maintain o2 sats >92%. Cont to prone. Pulmonary toilet. CXR on 09/22 unchanged (2) Acute respiratory failure with hypoxemia: Plan: 2nd to #1 above. Severe disease. No evidence of complicating bacterial superinfection or acute CHF. Cont HFNC. Cont Steroids, Baricitinib, Remdesivir, etc. Cont to prone. Incentive iliana/flutter valve. Procal low and overall picture does not suggest bacterial superinfection. gave Lasix 20mg IV this morning, good response so far (3) Abnormal liver function test: Plan: 2nd to COVID-19 infection. LFTs slightly higher than yesterday but acceptable enough to continue baricitinib. Repeat ast/alt in am. RUQ u/s with normal appearing liver & gall bladder. (4) Hypotension: Plan: 2nd to dehydration. Resolved. Creatinine stable. (5) DVT prophylaxis: Plan: lovenox 40mg BID (6) Hypokalemia: Plan: 2nd to diarrhea - resolved stop K supplement Plan: updated Linda's father (Mr. Dawson - [phone]) on 09/19/21 's phone # - [phone]; 's name is Ani Drake his speaks no Honduran she was updated today, 09/22, via the [employer] quilting machine operator questions answered patient has no health insurance - social work states [place] application has [place] Admission and Anticipated Discharge Date Admission Date: September 18, 2021 Subjective reviewed the chart and recent labs patient laying on his right side, no distress, he is on 30L 60% he says he is eating, he is making a lot of urine this morning after Lasix 20mg IV no chest pain, minimal cough I told him I would be back to round with quilting machine operator this afternoon Review of Systems Review of Systems: All systems reviewed & are unremarkable except as noted in Subjective Constitutional: + fatigue; no fever and no weakness Respiratory: + cough, + dyspnea and + dyspnea on exertion Cardiovascular: no chest pain and no edema Gastrointestinal: no abdominal pain, no nausea, no vomiting, no constipation and no diarrhea/loose stools Physical Exam Physical Exam: General: well developed, well nourished, ill appearing male Neck: supple, trachea midline, normal thyroid Lungs: clear to auscultation bilaterally, + tachypnea, + accessory muscle use, no distress, laying right side Heart: regular S1 and S2, no murmur, peripheral pulses normal, capillary refill normal, no edema Abdomen: soft, NT, ND, + BS, no hepatomegaly, normal to percussion Extremities: normal in appearance, no cyanosis, no petechiae, strength is 5/5 bilaterally Neuro: awake, cooperative, moves all extremities, no focal motor deficits, CN II-XII intact, sensation in extremities intact, normal speech Skin: warm, dry, no rash, normal turgor Psych: Awake, alert oriented x 3, euthymic affect Results & Data Results & Data ([facility]) Vital Signs (Past 12 Hours) Vital Signs Temp Pulse Pulse Resp BP Pulse Ox Pulse Ox 09/23/21 08:00 80 92 09/23/21 07:51 63 20 93 09/23/21 07:35 37.0 C 49 L 18 110/69 93 09/23/21 05:27 36.8 C 66 20 116/76 92 09/23/21 03:45 51 L 23 92 09/22/21 22:48 37.1 C 72 20 110/66 95 Laboratory Results Laboratory Results - last 24 hr 09/23/21 09/23/21 06:18 06:18 WBC 12.43 H RBC 4.93 Hgb 15.1 Hct 43.9 MCV 89.0 MCH 30.6 MCHC 34.4 RDW Std Deviation 41.1 RDW Coeff of Patricia 12.9 Plt Count 263 MPV 9.7 Sodium 134 L Potassium 4.8 Chloride 104 Carbon Dioxide 25 Anion Gap 5.0 BUN 24 H Creatinine 0.74 Est Cr Clr Drug Dosing 127.1 Est GFR ( Amer) 132.8 Est GFR (Non-Af Amer) 114.6 BUN/Creatinine Ratio 32.4 H Glucose 124 H Calcium 8.7 AST 42 H ALT 110 H C-Reactive Protein 5.60 H Medications Administered Current Inpatient Medications Acetaminophen (Acetaminophen 325 Mg Tab) 650 mg PO Q4H PRN PRN Reason: Pain or Fever Stop: 10/18/21 17:04 Albuterol (Albuterol 0.083% Nebu Soln 3 Ml Vial) 2.5 mg NEB Q6R PRN PRN Reason: Shortness Of Breath Stop: 10/18/21 14:08 Albuterol (Albuterol Hfa 8 Gm Inhaler) 2 puffs INH QIDR PRN PRN Reason: Shortness Of Breath Or Wheezing Stop: 10/19/21 14:59 Baricitinib (Baricitinib 2 Mg Tab) 4 mg PO DAILY [facility] Stop: 10/03/21 13:29 Last Admin: 09/23/21 08:58 Dose: 4 mg Documented by: Enoxaparin Sodium (Enoxaparin Inj 40 Mg/0.4 Ml Syr) 40 mg SQ BID [facility] Stop: 10/19/21 08:59 Last Admin: 09/23/21 08:59 Dose: 40 mg Documented by: Famotidine (Famotidine 20 Mg Tab) 20 mg PO BID [facility] Stop: 10/22/21 08:59 Last Admin: 09/23/21 09:47 Dose: 20 mg Documented by: Furosemide (Furosemide Inj 20 Mg/2 Ml Vial) 20 mg IV QAM [facility] Stop: 10/23/21 08:59 Last Admin: 09/23/21 08:59 Dose: 20 mg Documented by: Dexamethasone 6 mg/ Syringe 1.5 mls @ 1 mls/min IV DAILY [facility] Stop: 10/19/21 08:59 Last Admin: 09/23/21 08:59 Dose: 1 mls/min Documented by: Melatonin (Melatonin 3 Mg Tab) 3 mg PO HS PRN PRN Reason: IF ADDITIONAL DOSE NEEDED Stop: 10/21/21 17:08 Melatonin (Melatonin 3 Mg Tab) 6 mg PO HS [facility] Stop: 10/22/21 21:14 Last Admin: 09/22/21 22:00 Dose: 6 mg Documented by: PG Care Time/CCT Total # of Minutes Spent Total Time Spent with Patient: Total time spent is greater than 50% in coordination of care (as documented) at patient's floor/unit and/or counseling patient: Coding Level of Care Code 29859 Subseq Hosp Care Lvl 2 Diagnoses Pneumonia due to COVID-19 virus U07.1; J12.82 Acute respiratory failure with hypoxemia J96.01 Abnormal liver function test R79.89 Hypotension I95.9 DVT prophylaxis Z29.9 Hypokalemia E87.6
[2021-09-23] MEDS: MELATONIN 3 MG TAB PO SCH (21:30)
[2021-09-24] MEDS: FUROSEMIDE INJ 20 MG/2 ML VIAL IV SCH (10:07)
[2021-09-24] MEDS: ENOXAPARIN INJ 40 MG/0.4 ML SYR SQ SCH ×2 (10:07→21:07)
[2021-09-24] MEDS: FAMOTIDINE 20 MG TAB PO SCH ×2 (10:08→21:07)
[2021-09-24] MEDS: BARICITINIB 2 MG TAB PO SCH (10:08)
[2021-09-24] MEDS: dexAMETHasone 6 MG in SYRINGE 0 ML IV SCH (10:08)
--- NOTE | 2021-09-24 16:06 | Hospitalist Progress Note ---
Date of Service September 24, 2021 Assessment & Plan (1) Pneumonia due to COVID-19 virus: Plan: Severe b/l pneumonia. Has required HFNC since the time of ER presentation. currently he is 30L 75% Day #7 - Dexamethasone 6mg IV daily. completed 5 days of Remdesivir. Day #6 - Baricitinib. CRP improved at 5 when last checked, will repeat tomorrow Lovenox 40mg BID for DVT proph. Cont albuterol 2 puffs qid. Cont HFNC, maintain o2 sats >92%. Cont to prone. Pulmonary toilet. CXR on 09/22 unchanged (2) Acute respiratory failure with hypoxemia: Plan: 2nd to #1 above. Severe disease. No evidence of complicating bacterial superinfection or acute CHF. Cont HFNC. Cont Steroids, Baricitinib, Remdesivir, etc. Cont to prone. Incentive iliana/flutter valve. Procal low and overall picture does not suggest bacterial superinfection. Lasix 20mg IV daily, great response with negative 3 liters past two days (3) Abnormal liver function test: Plan: 2nd to COVID-19 infection. Repeat ast/alt in am. RUQ u/s with normal appearing liver & gall bladder. (4) Hypotension: Plan: 2nd to dehydration. Resolved. Creatinine stable. (5) DVT prophylaxis: Plan: lovenox 40mg BID (6) Hypokalemia: Plan: 2nd to diarrhea - resolved check tomorrow given Lasix use Plan: Linda's father (Mr. Dawson - [phone]) 's phone # - [phone]; 's name is Ani Drake his speaks no [place] patient has no health insurance - social work states [place] application has been [place] Admission and Anticipated Discharge Date Admission Date: September 18, 2021 Subjective patient still on 30L and 75% great response to Lasix the past two days eating and drinking well, no fever, minimal cough updated him using the medical center representative, answered all his questions discussed dexamethasone, baricitinib, Lasix encouraged him to lay prone, keep eating discussed that we will take this one day at a time, first goal would be to get off Vapotherm Review of Systems Review of Systems: All systems reviewed & are unremarkable except as noted in Subjective Respiratory: + cough, + dyspnea and + dyspnea on exertion Physical Exam Physical Exam: General: well developed, well nourished, ill appearing male Neck: supple, trachea midline, normal thyroid Lungs: clear to auscultation bilaterally, + tachypnea, + accessory muscle use, no distress, laying right side Heart: regular S1 and S2, no murmur, peripheral pulses normal, capillary refill normal, no edema Abdomen: soft, NT, ND, + BS, no hepatomegaly, normal to percussion Extremities: normal in appearance, no cyanosis, no petechiae, strength is 5/5 bilaterally Neuro: awake, cooperative, moves all extremities, no focal motor deficits, CN II-XII intact, sensation in extremities intact, normal speech Skin: warm, dry, no rash, normal turgor Psych: Awake, alert oriented x 3, euthymic affect Results & Data Results & Data ([facility]) Vital Signs (Past 12 Hours) Vital Signs Temp Pulse Pulse Resp BP Pulse Ox 09/24/21 15:53 57 L 16 89 L 09/24/21 15:44 37.1 C 57 L 20 97/53 L 92 09/24/21 12:14 36.9 C 62 26 H 93/54 L 94 09/24/21 10:43 66 20 91 09/24/21 08:57 68 16 94 09/24/21 08:00 65 09/24/21 07:48 50 L 100/61 09/24/21 07:19 47 L 20 90 Medications Administered Current Inpatient Medications Acetaminophen (Acetaminophen 325 Mg Tab) 650 mg PO Q4H PRN PRN Reason: Pain or Fever Stop: 10/18/21 17:04 Albuterol (Albuterol 0.083% Nebu Soln 3 Ml Vial) 2.5 mg NEB Q6R PRN PRN Reason: Shortness Of Breath Stop: 10/18/21 14:08 Albuterol (Albuterol Hfa 8 Gm Inhaler) 2 puffs INH QIDR PRN PRN Reason: Shortness Of Breath Or Wheezing Stop: 10/19/21 14:59 Baricitinib (Baricitinib 2 Mg Tab) 4 mg PO DAILY [facility] Stop: 10/03/21 13:29 Last Admin: 09/24/21 10:08 Dose: 4 mg Documented by: Enoxaparin Sodium (Enoxaparin Inj 40 Mg/0.4 Ml Syr) 40 mg SQ BID [facility] Stop: 10/19/21 08:59 Last Admin: 09/24/21 10:07 Dose: 40 mg Documented by: Famotidine (Famotidine 20 Mg Tab) 20 mg PO BID [facility] Stop: 10/22/21 08:59 Last Admin: 09/24/21 10:08 Dose: 20 mg Documented by: Furosemide (Furosemide Inj 20 Mg/2 Ml Vial) 20 mg IV QAM [facility] Stop: 10/23/21 08:59 Last Admin: 09/24/21 10:07 Dose: 20 mg Documented by: Dexamethasone 6 mg/ Syringe 1.5 mls @ 1 mls/min IV DAILY [facility] Stop: 10/19/21 08:59 Last Admin: 09/24/21 10:08 Dose: 1 mls/min Documented by: Melatonin (Melatonin 3 Mg Tab) 3 mg PO HS PRN PRN Reason: IF ADDITIONAL DOSE NEEDED Stop: 10/21/21 17:08 Melatonin (Melatonin 3 Mg Tab) 6 mg PO HS [facility] Stop: 10/22/21 21:14 Last Admin: 09/23/21 21:30 Dose: 6 mg Documented by: PG Care Time/CCT Total # of Minutes Spent Total Time Spent with Patient: Total time spent is greater than 50% in coordination of care (as documented) at patient's floor/unit and/or counseling patient: Coding Level of Care Code 15279 Subseq Hosp Care Lvl 3 Diagnoses Pneumonia due to COVID-19 virus U07.1; J12.82 Acute respiratory failure with hypoxemia J96.01 Abnormal liver function test R79.89 Hypotension I95.9 DVT prophylaxis Z29.9 Hypokalemia E87.6
[2021-09-24] MEDS: MELATONIN 3 MG TAB PO SCH (21:10)
[2021-09-25] MEDS: ENOXAPARIN INJ 40 MG/0.4 ML SYR SQ SCH ×2 (07:57→20:39)
[2021-09-25] MEDS: dexAMETHasone 6 MG in SYRINGE 0 ML IV SCH (07:57)
[2021-09-25] MEDS: BARICITINIB 2 MG TAB PO SCH (07:57)
[2021-09-25 07:58] LABS: Albumin Level 2.6 gm/dl (3.4-5.0); Bilirubin Direct 0.2 mg/dl (0-0.2); C Reactive Protein 1.42 mg/dl (0-0.29); Calcium 8.7 mg/dl (8.5-10.1); Est GFR (African American) 114.8 ml/min; Magnesium 2.6 mg/dl (1.8-2.4); Potassium 4.6 mmol/L (3.5-5.1)
[2021-09-25] MEDS: FAMOTIDINE 20 MG TAB PO SCH ×2 (07:58→20:39)
[2021-09-25] MEDS: FUROSEMIDE INJ 20 MG/2 ML VIAL IV SCH (07:58)
[2021-09-25 08:02] LABS: Bilirubin,Total 0.9 mg/dl (0.2-1); Total Protein 6.9 gm/dl (6.4-8.2)
[2021-09-25] MEDS: POLYETHYLENE (MIRALAX) 17 GM PACK PO SCH (09:05)
--- NOTE | 2021-09-25 13:53 | Hospitalist Progress Note ---
Date of Service September 25, 2021 Assessment & Plan (1) Pneumonia due to COVID-19 virus: Plan: Severe b/l pneumonia. Has required HFNC since the time of ER presentation. currently he is down to 9L wall high flow Day #8 - Dexamethasone 6mg IV daily. completed 5 days of Remdesivir. Day #7 - Baricitinib. CRP down to 1.4 today Lovenox 40mg BID for DVT proph. Cont albuterol 2 puffs qid. Cont HFNC, maintain o2 sats >92%. Cont to prone. Pulmonary toilet. CXR on 09/22 unchanged (2) Acute respiratory failure with hypoxemia: Plan: 2nd to #1 above. Severe disease. No evidence of complicating bacterial superinfection or acute CHF. Cont HFNC. Cont Steroids, Baricitinib, Remdesivir, etc. Cont to prone. Incentive iliana/flutter valve. Procal low and overall picture does not suggest bacterial superinfection. Lasix 20mg IV daily, great response the past 3 days, hold tomorrow (3) Abnormal liver function test: Plan: 2nd to COVID-19 infection. AST and ALT normal today RUQ u/s with normal appearing liver & gall bladder. (4) Hypotension: Plan: 2nd to dehydration. Resolved. Creatinine stable. (5) DVT prophylaxis: Plan: lovenox 40mg BID (6) Hypokalemia: Plan: 2nd to diarrhea - resolved K is 4.6 today Plan: Linda's father (Mr. Dawson - [phone]) 's phone # - [phone]; 's name is Ani Drake his speaks no Moroccan patient has no health insurance - social work states [place] application [place] Admission and Anticipated Discharge Date Admission Date: September 18, 2021 Subjective patient doing a lot better today, he is sitting in a chair, he is down to 9L no distress, less coughing, no fever eating well, making a lot of urine with lasix in the morning reviewed labs, CRP down to 1.4, Cr and K are stable I visited him with the family sociologist, answered all his questions discussed that he can likely get home by the end of the week Review of Systems Review of Systems: All systems reviewed & are unremarkable except as noted in Subjective Respiratory: + cough, + dyspnea and + dyspnea on exertion Physical Exam Physical Exam: General: well developed, well nourished, ill appearing male Neck: supple, trachea midline, normal thyroid Lungs: clear to auscultation bilaterally, + tachypnea, no accessory muscle use, no distress, laying right side Heart: regular S1 and S2, no murmur, peripheral pulses normal, capillary refill normal, no edema Abdomen: soft, NT, ND, + BS, no hepatomegaly, normal to percussion Extremities: normal in appearance, no cyanosis, no petechiae, strength is 5/5 bilaterally Neuro: awake, cooperative, moves all extremities, no focal motor deficits, CN II-XII intact, sensation in extremities intact, normal speech Skin: warm, dry, no rash, normal turgor Psych: Awake, alert oriented x 3, euthymic affect Results & Data Results & Data ([facility]) Vital Signs (Past 12 Hours) Vital Signs Temp Pulse Resp BP BP Pulse Ox 09/25/21 11:56 37.0 C 64 27 H 95/45 L 94 09/25/21 08:38 94 H 20 94 09/25/21 08:03 36.7 C 54 L 20 92/61 L 93 09/25/21 05:22 93 09/25/21 04:26 90 09/25/21 04:15 96/46 L 09/25/21 03:35 90/60 L 09/25/21 03:24 37.0 C 54 L 16 89/58 L 92 09/25/21 03:10 52 L 30 H 89 L Laboratory Results Laboratory Results - last 24 hr 09/25/21 06:56 Sodium 137 Potassium 4.6 Chloride 105 Carbon Dioxide 26 Anion Gap 7.0 BUN 35 H Creatinine 0.95 Est Cr Clr Drug Dosing 99.0 Est GFR ( Amer) 114.8 Est GFR (Non-Af Amer) 99.0 BUN/Creatinine Ratio 37.0 H Glucose 121 H Calcium 8.7 Magnesium 2.6 H Total Bilirubin 0.9 Direct Bilirubin 0.2 AST 18 ALT 75 Alkaline Phosphatase 112 C-Reactive Protein 1.42 H Total Protein 6.9 Albumin 2.6 L Medications Administered Current Inpatient Medications Acetaminophen (Acetaminophen 325 Mg Tab) 650 mg PO Q4H PRN PRN Reason: Pain or Fever Stop: 10/18/21 17:04 Albuterol (Albuterol 0.083% Nebu Soln 3 Ml Vial) 2.5 mg NEB Q6R PRN PRN Reason: Shortness Of Breath Stop: 10/18/21 14:08 Albuterol (Albuterol Hfa 8 Gm Inhaler) 2 puffs INH QIDR PRN PRN Reason: Shortness Of Breath Or Wheezing Stop: 10/19/21 14:59 Baricitinib (Baricitinib 2 Mg Tab) 4 mg PO DAILY [facility] Stop: 10/03/21 13:29 Last Admin: 09/25/21 07:57 Dose: 4 mg Documented by: Enoxaparin Sodium (Enoxaparin Inj 40 Mg/0.4 Ml Syr) 40 mg SQ BID [facility]AVE Stop: 10/19/21 08:59 Last Admin: 09/25/21 07:57 Dose: 40 mg Documented by: Famotidine (Famotidine 20 Mg Tab) 20 mg PO BID [facility] Stop: 10/22/21 08:59 Last Admin: 09/25/21 07:58 Dose: 20 mg Documented by: Dexamethasone 6 mg/ Syringe 1.5 mls @ 1 mls/min IV DAILY [facility] Stop: 10/19/21 08:59 Last Admin: 09/25/21 07:57 Dose: 1 mls/min Documented by: Melatonin (Melatonin 3 Mg Tab) 3 mg PO HS PRN PRN Reason: IF ADDITIONAL DOSE NEEDED Stop: 10/21/21 17:08 Melatonin (Melatonin 3 Mg Tab) 6 mg PO HS [facility] Stop: 10/22/21 21:14 Last Admin: 09/24/21 21:10 Dose: 6 mg Documented by: Polyethylene Glycol (Polyethylene (Miralax) 17 Gm Pack) 17 gm PO DAILY [facility] Stop: 10/25/21 08:59 Last Admin: 09/25/21 09:05 Dose: 17 gm Documented by: Sennosides (Senna 8.6 Mg Tab) 17.2 mg PO HS [facility] Stop: 10/25/21 20:59 PG Care Time/CCT Total # of Minutes Spent Total Time Spent with Patient: Total time spent is greater than 50% in coordination of care (as documented) at patient's floor/unit and/or counseling patient: Coding Level of Care Code 56064 Subseq Hosp Care Lvl 3 Diagnoses Pneumonia due to COVID-19 virus U07.1; J12.82 Acute respiratory failure with hypoxemia J96.01 Abnormal liver function test R79.89 Hypotension I95.9 DVT prophylaxis Z29.9 Hypokalemia E87.6
[2021-09-25] MEDS: SENNA 8.6 MG TAB PO SCH (20:39)
[2021-09-25] MEDS: MELATONIN 3 MG TAB PO SCH (20:39)
[2021-09-26] MEDS: dexAMETHasone 6 MG in SYRINGE 0 ML IV SCH (08:40)
[2021-09-26] MEDS: POLYETHYLENE (MIRALAX) 17 GM PACK PO SCH (08:41)
[2021-09-26] MEDS: FAMOTIDINE 20 MG TAB PO SCH ×2 (08:41→20:20)
[2021-09-26] MEDS: ENOXAPARIN INJ 40 MG/0.4 ML SYR SQ SCH ×2 (08:41→20:19)
[2021-09-26] MEDS: BARICITINIB 2 MG TAB PO SCH (08:44)
--- NOTE | 2021-09-26 10:01 | Hospitalist Progress Note ---
Date of Service September 26, 2021 Assessment & Plan (1) Pneumonia due to COVID-19 virus: Plan: Severe b/l pneumonia. Has required HFNC since the time of ER presentation. currently he is down to 5L wall high flow, saturating 95% Day #9 - Dexamethasone 6mg IV daily. completed 5 days of Remdesivir. Day #8 - Baricitinib. CRP down to 1.4 on 09/25 Lovenox 40mg BID for DVT proph. Cont albuterol 2 puffs qid. Cont HFNC, maintain o2 sats >92%. Cont to prone. Pulmonary toilet. CXR on 09/22 unchanged (2) Acute respiratory failure with hypoxemia: Plan: 2nd to #1 above. Severe disease. No evidence of complicating bacterial superinfection or acute CHF. down to 5L NC today, saturations 95%, could be down lower Cont dexamethasone, Baricitinib Cont to prone when laying down Incentive iliana/flutter valve. good response to Lasix for 4 days, no further dosing, BP is low (3) Abnormal liver function test: Plan: 2nd to COVID-19 infection. AST and ALT normal 09/25 RUQ u/s with normal appearing liver & gall bladder. (4) Hypotension: Plan: 2nd to dehydration. Resolved. Creatinine stable. (5) DVT prophylaxis: Plan: lovenox 40mg BID (6) Hypokalemia: Plan: 2nd to diarrhea - resolved K is 4.6 on 09/25 Plan: Linda's father (Mr. Dawson - [phone]) 's phone # - [phone]; 's name is Ani Drake his speaks no Maltese patient has no health insurance - social work states [place] application has been [place], they will reach out to patient Admission and Anticipated Discharge Date Admission Date: September 18, 2021 Subjective patient doing well today, down to 5L, no distress mild cough, no sputum eating and drinking well, getting up to chair discussed going home once oxygen down to 2-3L will downgrade to medical floor discussed plan with cna of Systems Review of Systems: All systems reviewed & are unremarkable except as noted in Subjective Respiratory: + cough, + dyspnea and + dyspnea on exertion; no sputum production Physical Exam Physical Exam: General: well developed, well nourished, ill appearing male Neck: supple, trachea midline, normal thyroid Lungs: clear to auscultation bilaterally, + tachypnea, no accessory muscle use, no distress, laying right side Heart: regular S1 and S2, no murmur, peripheral pulses normal, capillary refill normal, no edema Abdomen: soft, NT, ND, + BS, no hepatomegaly, normal to percussion Extremities: normal in appearance, no cyanosis, no petechiae, strength is 5/5 bilaterally Neuro: awake, cooperative, moves all extremities, no focal motor deficits, CN II-XII intact, sensation in extremities intact, normal speech Skin: warm, dry, no rash, normal turgor Psych: Awake, alert oriented x 3, euthymic affect Results & Data Results & Data ([facility]) Vital Signs (Past 12 Hours) Vital Signs Temp Pulse Pulse Resp BP BP Pulse Ox 09/26/21 09:00 56 L 09/26/21 07:52 36.6 C 57 L 16 98/65 L 95 09/26/21 06:34 91 09/26/21 05:35 92 09/26/21 03:22 36.9 C 57 L 19 90/54 L 96 09/25/21 23:24 53 L 09/25/21 23:00 36.7 C 49 L 19 100/60 95 Medications Administered Current Inpatient Medications Acetaminophen (Acetaminophen 325 Mg Tab) 650 mg PO Q4H PRN PRN Reason: Pain or Fever Stop: 10/18/21 17:04 Albuterol (Albuterol 0.083% Nebu Soln 3 Ml Vial) 2.5 mg NEB Q6R PRN PRN Reason: Shortness Of Breath Stop: 10/18/21 14:08 Albuterol (Albuterol Hfa 8 Gm Inhaler) 2 puffs INH QIDR PRN PRN Reason: Shortness Of Breath Or Wheezing Stop: 10/19/21 14:59 Baricitinib (Baricitinib 2 Mg Tab) 4 mg PO DAILY DAVE Stop: 10/03/21 13:29 Last Admin: 09/26/21 08:44 Dose: 4 mg Documented by: Enoxaparin Sodium (Enoxaparin Inj 40 Mg/0.4 Ml Syr) 40 mg SQ BID [facility]AVE Stop: 10/19/21 08:59 Last Admin: 09/26/21 08:41 Dose: 40 mg Documented by: Famotidine (Famotidine 20 Mg Tab) 20 mg PO BID [facility] Stop: 10/22/21 08:59 Last Admin: 09/26/21 08:41 Dose: 20 mg Documented by: Dexamethasone 6 mg/ Syringe 1.5 mls @ 1 mls/min IV DAILY [facility] Stop: 10/19/21 08:59 Last Admin: 09/26/21 08:40 Dose: 1 mls/min Documented by: Melatonin (Melatonin 3 Mg Tab) 3 mg PO HS PRN PRN Reason: IF ADDITIONAL DOSE NEEDED Stop: 10/21/21 17:08 Melatonin (Melatonin 3 Mg Tab) 6 mg PO HS [facility] Stop: 10/22/21 21:14 Last Admin: 09/25/21 20:39 Dose: 6 mg Documented by: Polyethylene Glycol (Polyethylene (Miralax) 17 Gm Pack) 17 gm PO DAILY [facility] Stop: 10/25/21 08:59 Last Admin: 09/26/21 08:41 Dose: 17 gm Documented by: Sennosides (Senna 8.6 Mg Tab) 17.2 mg PO HS [facility] Stop: 10/25/21 20:59 Last Admin: 09/25/21 20:39 Dose: 17.2 mg Documented by: PG Care Time/CCT Total # of Minutes Spent Total Time Spent with Patient: Total time spent is greater than 50% in coordination of care (as documented) at patient's floor/unit and/or counseling patient: Coding Level of Care Code 43579 Subseq Hosp Care Lvl 2 Diagnoses Pneumonia due to COVID-19 virus U07.1; J12.82 Acute respiratory failure with hypoxemia J96.01 Abnormal liver function test R79.89 Hypotension I95.9 DVT prophylaxis Z29.9 Hypokalemia E87.6
[2021-09-26] MEDS: MELATONIN 3 MG TAB PO SCH (20:20)
[2021-09-26] MEDS: SENNA 8.6 MG TAB PO SCH (20:21)
[2021-09-27 06:50] LABS: BUN Creatinine Ratio 34.6 (10-20); C Reactive Protein 0.56 mg/dl (0-0.29); Calcium 8.9 mg/dl (8.5-10.1); Est GFR (African American) 109.2 ml/min; Est GFR (Non-African American) 94.2 ml/min; Potassium 4.5 mmol/L (3.5-5.1)
[2021-09-27] MEDS: POLYETHYLENE (MIRALAX) 17 GM PACK PO SCH (10:17)
[2021-09-27] MEDS: FAMOTIDINE 20 MG TAB PO SCH ×2 (10:17→20:53)
[2021-09-27] MEDS: ENOXAPARIN INJ 40 MG/0.4 ML SYR SQ SCH ×2 (10:17→20:51)
[2021-09-27] MEDS: dexAMETHasone 6 MG in SYRINGE 0 ML IV SCH (11:07)
[2021-09-27] MEDS: BARICITINIB 2 MG TAB PO SCH (11:08)
--- NOTE | 2021-09-27 13:34 | Hospitalist Progress Note ---
Date of Service September 27, 2021 Assessment & Plan (1) Pneumonia due to COVID-19 virus: Plan: Severe b/l pneumonia. Has required HFNC since the time of ER presentation. currently he is down to 6L wall high flow, saturating 95% Day #10 - Dexamethasone 6mg IV daily, continue a little longer, maybe 2 days then stop completed 5 days of Remdesivir. Day #9 - Baricitinib. CRP down to 0.5 Lovenox 40mg BID for DVT proph. Cont albuterol 2 puffs qid. Cont HFNC, maintain o2 sats >92%. Cont to prone. Pulmonary toilet. CXR on 09/22 unchanged hopefully home in 2-3 days (2) Acute respiratory failure with hypoxemia: Plan: 2nd to #1 above. Severe disease. No evidence of complicating bacterial superinfection or acute CHF. down to 6L NC today, saturations 96%, could be down lower Cont dexamethasone, Baricitinib Cont to prone when laying down Incentive iliana/flutter valve. good response to Lasix for 4 days, no further dosing, BP is low (3) Abnormal liver function test: Plan: 2nd to COVID-19 infection. AST and ALT normal 12/ RUQ u/s with normal appearing liver & gall bladder. (4) Hypotension: Plan: 2nd to dehydration. Resolved. Creatinine stable. (5) DVT prophylaxis: Plan: lovenox 40mg BID (6) Hypokalemia: Plan: 2nd to diarrhea - resolved K is 4.5 today Plan: Linda's father (Mr. Dawson - [phone]) 's phone # - [phone]; 's name is Ani Drake his speaks no Mauritanian patient has no health insurance - social work states [place] application has been [place], they will reach out to patient Admission and Anticipated Discharge Date Admission Date: September 18, 2021 Subjective patient doing well, stable on 6L, could likely be on 5L no distress, minimal cough, eating and drinking well, making urine discussed that once he is down to 2-3 L at rest will send him home, he agrees Review of Systems Review of Systems: All systems reviewed & are unremarkable except as noted in Subjective Physical Exam Physical Exam: General: well developed, well nourished, ill appearing male Neck: supple, trachea midline, normal thyroid Lungs: clear to auscultation bilaterally, normal respiratory effort, no accessory muscle use, no distress, laying right side Heart: regular S1 and S2, no murmur, peripheral pulses normal, capillary refill normal, no edema Abdomen: soft, NT, ND, + BS, no hepatomegaly, normal to percussion Extremities: normal in appearance, no cyanosis, no petechiae, strength is 5/5 bilaterally Neuro: awake, cooperative, moves all extremities, no focal motor deficits, CN II-XII intact, sensation in extremities intact, normal speech Skin: warm, dry, no rash, normal turgor Psych: Awake, alert oriented x 3, euthymic affect Results & Data Results & Data ([facility]) Laboratory Results Laboratory Results - last 24 hr 09/27/21 05:47 Sodium 135 L Potassium 4.5 Chloride 104 Carbon Dioxide 28 Anion Gap 3.0 BUN 34 H Creatinine 0.99 Est Cr Clr Drug Dosing 95.0 Est GFR ( Amer) 109.2 Est GFR (Non-Af Amer) 94.2 BUN/Creatinine Ratio 34.6 H Glucose 120 H Calcium 8.9 C-Reactive Protein 0.56 H Medications Administered Current Inpatient Medications Acetaminophen (Acetaminophen 325 Mg Tab) 650 mg PO Q4H PRN PRN Reason: Pain or Fever Stop: 10/18/21 17:04 Albuterol (Albuterol 0.083% Nebu Soln 3 Ml Vial) 2.5 mg NEB Q6R PRN PRN Reason: Shortness Of Breath Stop: 10/18/21 14:08 Albuterol (Albuterol Hfa 8 Gm Inhaler) 2 puffs INH QIDR PRN PRN Reason: Shortness Of Breath Or Wheezing Stop: 10/19/21 14:59 Baricitinib (Baricitinib 2 Mg Tab) 4 mg PO DAILY [facility] Stop: 10/03/21 13:29 Last Admin: 09/27/21 11:08 Dose: 4 mg Documented by: Enoxaparin Sodium (Enoxaparin Inj 40 Mg/0.4 Ml Syr) 40 mg SQ BID [facility] Stop: 10/19/21 08:59 Last Admin: 09/27/21 10:17 Dose: 40 mg Documented by: Famotidine (Famotidine 20 Mg Tab) 20 mg PO BID [facility] Stop: 10/22/21 08:59 Last Admin: 09/27/21 10:17 Dose: 20 mg Documented by: Dexamethasone 6 mg/ Syringe 1.5 mls @ 1 mls/min IV DAILY [facility] Stop: 10/19/21 08:59 Last Admin: 09/27/21 11:07 Dose: 1 mls/min Documented by: Melatonin (Melatonin 3 Mg Tab) 3 mg PO HS PRN PRN Reason: IF ADDITIONAL DOSE NEEDED Stop: 10/21/21 17:08 Melatonin (Melatonin 3 Mg Tab) 6 mg PO HS [facility] Stop: 10/22/21 21:14 Last Admin: 09/26/21 20:20 Dose: 6 mg Documented by: Polyethylene Glycol (Polyethylene (Miralax) 17 Gm Pack) 17 gm PO DAILY [facility] Stop: 10/25/21 08:59 Last Admin: 09/27/21 10:17 Dose: Not Given Documented by: Sennosides (Senna 8.6 Mg Tab) 17.2 mg PO HS [facility] Stop: 10/25/21 20:59 Last Admin: 09/26/21 20:21 Dose: 17.2 mg Documented by: PG Care Time/CCT Total # of Minutes Spent Total Time Spent with Patient: Total time spent is greater than 50% in coordination of care (as documented) at patient's floor/unit and/or counseling patient: Coding Level of Care Code 47322 Subseq Hosp Care Lvl 2 Diagnoses Pneumonia due to COVID-19 virus U07.1; J12.82 Acute respiratory failure with hypoxemia J96.01 Abnormal liver function test R79.89 Hypotension I95.9 DVT prophylaxis Z29.9 Hypokalemia E87.6
[2021-09-27] MEDS: MELATONIN 3 MG TAB PO SCH (20:51)
[2021-09-27] MEDS: SENNA 8.6 MG TAB PO SCH (20:52)
[2021-09-28] MEDS: POLYETHYLENE (MIRALAX) 17 GM PACK PO SCH (10:08)
[2021-09-28] MEDS: dexAMETHasone 6 MG in SYRINGE 0 ML IV SCH (10:08)
[2021-09-28] MEDS: ENOXAPARIN INJ 40 MG/0.4 ML SYR SQ SCH (10:09)
[2021-09-28] MEDS: BARICITINIB 2 MG TAB PO SCH (10:12)
[2021-09-28] MEDS: FAMOTIDINE 20 MG TAB PO SCH (10:12)
--- NOTE | 2021-10-08 09:07 | Discharge Summary ---
Date of Service September 28, 2021 Admission HPI Per Admitting Provider This is a pleasant 41 yo male who comes in with a 7 day history of upper respiratory illness symptoms. Sore throat cough, fever chills, SOB. This has been ongoing and gradually worsening to the point today that patient could not breath well at home. ROS below Principal Diagnosis COVID 19 pneumonia Acute hypoxic respiratory failure Discharge Exam General: well developed, well nourished male, no distress Neck: supple, trachea midline, normal thyroid Lungs: clear to auscultation bilaterally, normal respiratory effort, no accessory muscle use, no distress Heart: regular S1 and S2, no murmur, peripheral pulses normal, capillary refill normal, no edema Abdomen: soft, NT, ND, + BS, no hepatomegaly, normal to percussion Extremities: normal in appearance, no cyanosis, no petechiae, strength is 5/5 bilaterally Neuro: awake, cooperative, moves all extremities, no focal motor deficits, CN II-XII intact, sensation in extremities intact, normal speech Skin: warm, dry, no rash, normal turgor Psych: Awake, alert oriented x 3, euthymic affect Discharge Data Allergies Allergy/AdvReac Type Severity Reaction Status Date / Time No Known Allergies Allergy Unverified 09/12/21 11:37 Consultations 09/18/21 12:16 ED Decision to Admit Stat Ordered Studies 09/18/21 gallbladder Stat Hospital Course (1) Pneumonia due to COVID-19 virus: Severe b/l pneumonia. Has required HFNC since the time of ER presentation. currently he is down to room air at rest 2 step showed that he needed 3L on exertion, will arrange home oxygen completed 10 days of dexamethasone, no further treatment needed, down to room air at rest completed 5 days of Remdesivir. 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 Severe disease. No evidence of complicating bacterial superinfection or acute CHF. down to room air today, saturations >90%, needed 3L on exertion, set up home oxygen completed Remdesivir, dexamethasone, Baricitinib Cont to prone when laying down Incentive iliana/flutter valve. good response to Lasix, no need to continue on discharge (3) Abnormal liver function test: 2nd to COVID-19 infection. AST and ALT normal 12/20 RUQ u/s with normal appearing liver & gall bladder. (4) Hypotension: 2nd to dehydration. Resolved. Creatinine stable. (5) DVT prophylaxis: lovenox 40mg BID (6) Hypokalemia: 2nd to diarrhea - resolved patient has no health insurance - social work states [place] application has been [place], they will reach out to patient Total Time Total Time Spent Total Time Spent (In Minutes): 33 minutes Total Time Includes: Examination of the Patient, Discharge Planning, Medication Reconciliation and Other (speaking with patient via customer associate) Discharge Plan Discharge Items Patient Disposition: Home - Self-Care Reason For Visit: COVID-19 PNEUMONIA Discharge Diagnosis: COVID 19 pneumonia Acute hypoxic respiratory failure Goals: wean off oxygen stay well nourished, well hydrated, well rested Activity: Resume your previous activity Driving/Machine Use: No limitations Weightbearing: Full weightbearing Non-emergency contact: Primary Care Provider Call non-emergency contact if: you have any medication questions Follow-up/Referrals: PCP,NO [Primary Care Provider] - Diet: Regular Addtl Attending Provider Instructions: Medications: no changes COVID 19 pneumonia, acute hypoxic respiratory failure you responded quite well to dexamethasone (steroid) and baricitinib no further treatment needed you are down to room air at rest but need 3L on exertion I would expect you to not need any oxygen on exertion after a week please see below about establishing with a primary care doctor you should only continue to feel better and better it will likely be 2-3 weeks until you feel normal or fully recovered Addtl Sanitarian Provider Instructions: There are two good options for primary care in [place]: [facility] (ph#[phone]) and [facility] (ph#[phone]). Both of these options would accept Medicaid health insurance if you are approved for this. They also both offer self-pay discount pricing if you do not have health insurance. If you decide you would like to see a primary care physician, or have any other questions or concerns post-discharge, please feel free to call [phone] and ask to speak with Marcia Daniel, nurse navigator. Pending Studies at Discharge: No Stand-Alone Forms: My [facility] DOZ, Smoking Cessation Medications and DC Order Prescriptions: Continued potassium chloride 20 mEq tablet extended release 20 meq PO DAILY Qty: 3 RF: 0 Discharge Orders: Discharge Order (Routine); Ordered 09/28/21 Ordered By: Tae Miller/Other Patient Handouts: Disinfecting Your Home of COVID-19, How COVID-19 Spreads, COVID-19 Home Care, Proning COVID-19 Admission Data Admit Date/Time: 09/18/21 14:20 Attending Provider: Tae Broderick Admit Provider: Giuseppe Gregg Primary Care Provider: PCP,NO Other Providers: Giuseppe Gregg Other Interventions: Discharge Summary Assessment (RN) Last Done: 09/28/21 12:44 Coding Level of Care Code D/C DAY MANAGEMENT >30 MINS Diagnoses Pneumonia due to COVID-19 virus U07.1; J12.82 Acute respiratory failure with hypoxemia J96.01 Abnormal liver function test R79.89 Hypotension I95.9 DVT prophylaxis Z29.9 Hypokalemia E87.6
== END 2021-09-28 14:00 | disposition home or self-care (01) | DRG 177 ==
LOC: ED 11:09 → SUATTDRO 14:20 → EDINP 14:20 → 2E 09-20 10:26 → 3W 09-26 16:13